=== PATIENT | female | born 1975 | race Caucasian/White ===

== ENCOUNTER → 2017-03-10 | Outpatient (CLI) | payer BC ==
--- NOTE | ~2017-03-10 | OR ---
PATIENT'S NAME: CASI HEDRICK [facility] AGE: 41 Y [address] ROOM: [place] [address] LOCATION: [facility] ADMIT DATE: 03/10/2017 OR/Procedure Report DISCHARGE DATE: FAMILY PHYSICIAN: Alejandra Michael MD ATTENDING PHYSICIAN: TANGELA FELDER SURGEON: Clark Wilkins MD FIELD HOCKEY COACH: DATE OF PROCEDURE: 03/10/2017 CALCIUM SCORE REPORT REFERRING PHYSICIAN: Tangela Felder MD INDICATION FOR STUDY: Exertional chest pain and dizziness. DESCRIPTION OF PROCEDURE: The procedure was described to the patient and an informed consent was obtained. Calcium score analysis was performed using [address] scanner. The total calcium score is zero. The noncardiac findings will be reported separately by the radiologist. MD ZAHNNA ROBLERO/modl /[id number] d: 03/10/17 1440 t: 03/21/17 1614, OPERATIVE SUMMARY
--- NOTE | ~2017-03-10 | ESTC ---
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 Risk Factors The patient risk factors include:obesity, hypertension and family history of premature CAD. Conclusions Summary Perfusion Images: The overall quality of the study is fair, due to soft tissue attenuation. Left ventricular cavity is noted to be normal on the stress and rest studies. There is no evidence of abnormal lung activity. The right ventricle is not visualized and cannot be assessed. Stress SPECT images images demonstrate homogenous tracer distribution throughout the myocardium except for mild decrease uptake in a small area involving the anterior wall. Rest SPECT images reveal a medium to large sized area of moderate decreased isotope uptake in the anterior wall and anteroseptal wall . Gated SPECT imaging reveals normal myocardial thickening and wall motion. The left ventricular ejection fraction was calculated to be 67%. Impression ECG portion of stress test is clinically positive for ischemia by diagnostic criteria. Myocardial perfusion imaging is probably normal. The mild anterior wall defect worse on rest images with preserved wall motion is likely due to soft tissue attenuation. Overall left ventricular systolic function was normal without regional wall motion abnormalities. Stress Protocols Resting ECG RSR without ST or T wave changes with non specific T wave abnormalities Resting HR:66 bpm Resting BP:138/79 mmHg Pre-stress physical exam: Findings on the pre-stress exam revealed: RSR without mummer. Lungs clear to auscultation. No edema in lower extrevities.. Stress Protocol:Exercise Peak HR:153 bpm HR response: Appropriate Peak BP:180/80 mmHg BP response: Appropriate Predicted HR: 181 bpm HR/BP product:54295 % of predicted HR: 85 Test duration:09:48 min Reason for termination:Target heart rate Exercise effort:Good Perceived exertion:11 ECG Findings Sinus tachycardia. Arrhythmias Horizontal ST segment depression Lead II, III, AVF, V3, V4, V5, V6 Symptoms Some shortness of breath with ache at peak stress to the right side of her neck Stress Interpretation The electrocardiographic portion of the stress test was positive for ischemia. Blood pressure response was normal, heart rate response was normal for exertion. The Fermin Treadmill Score was -4. This corresponds to a high risk stress test. Stress supervision and interpretation provided by Milla Seay APRN . Imaging Results Summed scores - Summed stress score: 7 - Summed rest score: 14 - Summed difference score: -7 Stress ejection Ejection fraction:68 % EDV :84 ml ESV :27 ml Stroke volume :57 ml LV mass :120 gr Imaging Protocols Rest Stress Isotope:Tc99m Sestamibi IV Isotope: Tc99m Sestamibi IV Isotope dose:12.5 mCi Isotope dose:37.8 mCi Date:03/10/2017 07:50 Date:03/10/2017 09:37 Technique: SPECT Technique: Gated Supine SPECT Supine Scan Time:45-60 minutes post Scan Time:15-30 minutes post injection injection Medical History Admission Data Admission date: 03/10/2017 Admission Time: 07:23 Hospital Status: Outpatient. Signatures dtt: VAMSI RUEDA dtd: 03/10/17 0930 Physician Self Edit
== END | disposition disaster alternative care site (69) ==
LOC: GRAD 07:23
DX: I20.0 Unstable angina (principal); E42 Marasmic kwashiorkor; E66.9 Obesity, unspecified; I10 Essential (primary) hypertension; R91.1 Solitary pulmonary nodule; Z82.49 Family history of ischemic heart disease and other diseases of the circulatory system
CPT/HCPCS: A9500

== ENCOUNTER → 2017-03-18 | Outpatient (CLI) | payer BC ==
[2017-03-18 09:16] LABS: ALBUMIN 3.5 gm/dL (3.5-5.0); CALCIUM 9.3 mg/dL (8.5-10.5); CREATININE 1.1 mg/dL (0.5-1.1); TOTAL BILIRUBIN 0.6 mg/dL (0.0-1.5); TOTAL PROTEIN 7.1 g/dL (6.0-8.4)
== END ==
LOC: LNHI 08:53
PROVIDERS: Internal Medicine Interventional Cardiology
DX: I20.0 Unstable angina (principal)